=== PATIENT | male | born 1990 | race Asian ===

== ENCOUNTER 2021-02-16 19:32 | Inpatient (IN) | payer OTHER ==
[~2021-02-16] VITALS: Ht 170.2 cm; Wt 110.7 kg
[2021-02-16] MEDS: DEXT 5% /NACL 0.9% 1,000 ML IV SCH (02:25)
[2021-02-16 19:32] VITALS: BP 102/61
--- NOTE | 2021-02-16 19:32 | NUR ---
CHILO DRISCOLL TAKEN TO BED #5
--- NOTE | 2021-02-16 19:48 | NUR ---
30 YO/M BIBA FROM WORK W C/O VOMITING BLOOD THAT BEGAN TODAY, WATERY DIARRHEA X1 DAY "DARK LIKE BLOOD." PATIENT REPORTS HE WAS WORKING AND VOMITED BLOOD GOT SHAKY, SWEATY, VISION BLURRED BUT SYMPTOMS RESOLVED WHEN VOMITING STOPPED. PATIENT DENIES ABDOMINAL PAIN OR INJURY. PATIENT DENIES NAUSEA, DIZZYNESS, FEVERS. BOWEL SOUNDS PRESENT THROUGHOUT, ABDOMEN SOFT NON-TENDER. PATIENT DENIES ANY CHEST PAIN OR SOB. PATIENT DENIES ANY URINARY PROBLEMS. PATIENT CONNECTED TO MONITOR W VSS. GLUCOSE AT 136, ERMD AWARE. PATIENT LAYING IN BED LOCKED IN LOWEST POSITION, HOB SLIGHTLY ELEVATED. X1 SIDERAIL UP. NO EPISODES OF EMESIS AT THIS TIME. PMH:STOMACH ULCERS NKA
--- NOTE | 2021-02-16 19:48 | NUR ---
Note undone in EDM - 02/16/21 at 2358 by RHONDA 30 YO/M BIBA FROM WORK W C/O VOMITING BLOOD THAT BEGAN TODAY, WATERY DIARRHEA X1 DAY "DARK LIKE BLOOD." PATIENT REPORTS HE WAS WORKING AND VOMITED BLOOD GOT SHAKY, SWEATY, VISION BLURRED BUT SYMPTOMS RESOLVED WHEN VOMITING STOPPED. PATIENT DENIES ABDOMINAL PAIN OR INJURY. PATIENT DENIES NAUSEA, DIZZYNESS, FEVERS. BOWEL SOUNDS PRESENT THROUGHOUT, ABDOMEN SOFT NON-TENDER. PATIENT DENIES ANY CHEST PAIN OR SOB. PATIENT DENIES ANY URINARY PROBLEMS. PATIENT CONNECTED TO MONITOR W VSS, TACHY CARDIA AT 108. GLUCOSE AT 136, ERMD AWARE. PATIENT LAYING IN BED LOCKED IN LOWEST POSITION, HOB SLIGHTLY ELEVATED. X1 SIDERAIL UP. NO EPISODES OF EMESIS AT THIS TIME. PMH:STOMACH ULCERS NKA
[2021-02-16] MEDS ORDERED: PANTOPRAZOLE 40 MG TABEC PO ONE (19:55)
[2021-02-16] MEDS ORDERED: NACL 0.9% 1,000 ML IV ONE (19:55)
[2021-02-16] MEDS ORDERED: PANTOPRAZOLE 40 MG INJ VIAL IVP ONE (20:00)
[2021-02-16 20:21] LABS: BASOPHILS # (AUTO) 0.2 K/uL (0.00-0.22); BASOPHILS % (AUTO) 0.8 % (0.0-2.0); EOSINOPHILS # (AUTO) 0.1 K/uL (0-0.4); EOSINOPHILS % (AUTO) 0.4 % (0.0-4.0); HEMATOCRIT 33.8 % (36-52); HEMOGLOBIN 11.5 g/dL (12.0-18.0); LYMPHOCYTES # (AUTO) 1.7 K/uL (2.0-11.5); MEAN CORPUSCULAR HEMOGLOBIN 30 pg (27-31); MEAN CORPUSCULAR HGB CONC 34 g/dL (33-37); MEAN CORPUSCULAR VOLUME 89.4 fL (80-94); MONOCYTES # (AUTO) 0.6 K/uL (0.8-1.0); MONOCYTES % (AUTO) 3.3 % (1.7-9.3); NEUTROPHILS # (AUTO) 16.5 K/uL (1.8-7.7); NEUTROPHILS % (AUTO) 86.5 % (42.2-75.2); PLATELET COUNT (AUTO) 286 K/uL (140-450); RED BLOOD CELL COUNT(AUTO) 3.79 MIL/uL (4.20-6.10); RED CELL DISTRIBUTION WIDTH 12.9 % (11.6-13.7); WHITE BLOOD COUNT (AUTO) 19.1 K/uL (4.8-10.8)
[2021-02-16] MEDS ORDERED: PANTOPRAZOLE 40 MG INJ VIAL ONE (20:35)
[2021-02-16 20:40] LABS: ALBUMIN 3.1 g/dL (3.4-5.0); ANION GAP 8.8 (8-16); CARBON DIOXIDE 25.9 mmol/L (21-32); CREATININE 1.1 mg/dL (0.6-1.3); POTASSIUM 3.7 mmol/L (3.5-5.1); TOTAL BILIRUBIN 0.5 mg/dL (0.0-1.0)
--- NOTE | 2021-02-16 21:05 | NUR ---
PATIENT AMBULATED TO BATHROOMW STEADY GAIT.
[2021-02-16] MEDS ORDERED: traMADol 50 MG TAB PO ONE (21:50)
--- NOTE | 2021-02-16 21:50 | NUR ---
PATIENT W C/O 03/21 TOOCHACHE ON L SIDE, REPORTS SAW DENTIST AND NEEDS REMOVAL OF WISDOM TEETH. ERMD AWARE. ORDERS FOR PAIN MEDICATION.
--- NOTE | 2021-02-16 21:50 | NUR ---
Note vicenta in EDM - 02/17/21 at 0135 by RHONDA PATIENT W C/O 03/21 GUILHERME ON L SIDE, REPORTS SAW DENTIST AND NEEDS REMOVAL ON TONSILS. ERMD AWARE. ORDERS FOR PAIN MEDICATION.
--- NOTE | 2021-02-16 21:57 | NUR ---
PATIENT AND ERMD SIGNED CONSENT FORM FOR IV CONTRAST.
[2021-02-16] MEDS ORDERED: ZOLPIDEM 5 MG TAB PO PRN (22:40)
[2021-02-16] MEDS ORDERED: guaiFENesin DM 200/20 MG-10 ML 10 ML UDC PO PRN (22:40)
[2021-02-16] MEDS ORDERED: ACETAMINOPHEN 325 MG TAB PO PRN (22:40)
[2021-02-16] MEDS ORDERED: ONDANSETRON 4 MG/2 ML VIAL IM/IVP PRN (22:40)
[2021-02-16] MEDS ORDERED: POTASSIUM CHLORIDE 10 MEQ TABER PO PRN (22:40)
[2021-02-16] MEDS ORDERED: DOCUSATE SODIUM 100 MG GELCAP PO PRN (22:40)
[2021-02-16] MEDS ORDERED: HYDROcodone/APAP 7.5/325 MG 1 TAB PO PRN (22:40)
[2021-02-16] MEDS ORDERED: cefTRIAXone 1,000 MG VIAL ONE (22:49)
[2021-02-16] MEDS ORDERED: VANCOMYCIN 1,000 MG in DEXTROSE 5% 250 ML IV SCH (23:00)
[2021-02-16 23:13] LABS: CHOL/HDL RATIO 4.7 (1-4.5); FREE T4 (FREE THYROXINE) 0.88 ng/dL (0.76-1.46); MAGNESIUM 1.9 mg/dL (1.8-2.4); PHOSPHORUS 2.7 mg/dL (2.5-4.9); THYROID STIMULATING HORMONE 0.49 uIU/mL (0.34-3.74)
[2021-02-16 23:14] LABS: PROTHROMBIN TIME 10.4 secs (10.8-13.4)
--- NOTE | 2021-02-16 23:15 | NUR ---
PER PATIENT, FRIEND MAYTE ALLOWED TO RECEVED UPDATES ON PATIENT STATUS AND RESULTS.
[2021-02-16] MEDS ORDERED: VANCOMYCIN 1,000 MG VIAL ONE (23:38)
--- NOTE | 2021-02-16 23:55 | NUR ---
PATIENT LAYING IN BED W EYES CLOSED, BREATHING EVEN AND UNLABORED, BED LOCKED IN LOWEST POITION W X1 SIDERAIL UP. HOB SLIGHTLY ELEVATED. CONNECTED TO MONITOR W VSS. NAD NOTED, WILL CONTINUE TO MONITOR. FRIEND AT BEDSIDE.
[2021-02-16 23:58] LABS: APPEARANCE,URINE CLEAR (CLEAR); BILIRUBIN,URINE NEGATIVE (NEGATIVE); BLOOD, URINE NEGATIVE (NEGATIVE); COLOR,URINE YELLOW (YELLOW); LEUKOCYTE ESTERASE ,URINE NEGATIVE (NEGATIVE); NITRITE, URINE NEGATIVE (NEGATIVE); PH,URINE 6.5 (5.0-9.0); UGLUCOSE NEGATIVE (NEGATIVE)
[2021-02-17 00:11] LABS: BARBITURATE, URINE NEGATIVE ng/ml (NEG <=200); BENZODIAZEPINE, URINE NEGATIVE ng/mL (NEG <=200); CANNABINOID, URINE NEGATIVE ng/mL (NEG <=50); COCAINE, URINE NEGATIVE ng/mL (NEG <=300); OPIATE, URINE NEGATIVE ng/mL (NEG <=2000); PHENCYCLIDINE SCREEN,URINE NEGATIVE ng/mL (NEG <=25)
--- NOTE | 2021-02-17 01:10 | NUR ---
PATIENT AWAKE IN BED W C/O ONGOING 10/10 WISDOM TEETH PAIN. ERMD PLACED ORDER FOR 4MG MORPHINE IVP.
[2021-02-17] MEDS ORDERED: MORPHINE SULFATE 4 MG/ML SYR IVP ONE (01:15)
--- NOTE | 2021-02-17 01:35 | NUR ---
PATIENT AMBULATED TO [facility] W STEADY GAIT.
[2021-02-17] MEDS ORDERED: PIPERACILLIN/TAZOBACTAM 2.25 GM VIAL IV ONE ×2 (01:39→06:23)
[2021-02-17] MEDS: PIPERACILLIN/TAZOBACTAM 2.25 GM in DEXTROSE 5% 50 ML IV SCH ×4 (01:55→18:11)
--- NOTE | 2021-02-17 02:50 | NUR ---
MRSA SAMPLE COLLECTED FROM PATIENT NARES AND SENT TO LAB.
--- NOTE | 2021-02-17 03:00 | NUR ---
PATIENT LAYING IN BED W EYES CLOSED IN SUPINE POSITION, BREATHING EVEN AND UNLABORED, BED LOCKED IN LOWEST POITION W X1 SIDERAIL UP. HOB SLIGHTLY ELEVATED. CONNECTED TO MONITOR W VSS. NAD NOTED, WILL CONTINUE TO MONITOR. 5%DEXTROSE - 0.9NS RUNNING AT 120ML/HR W 826 ML VTBI.
--- NOTE | 2021-02-17 05:15 | NUR ---
PATIENT LAYING IN BED IN SUPINE POSITION, BREATHING EVEN AND UNLABORED, BED LOCKED IN LOWEST POITION W X1 SIDERAIL UP. HOB SLIGHTLY ELEVATED. CONNECTED TO MONITOR W VSS. PATIENT DENIES ANY ABD PAIN OR NAUSEA. NAD NOTED, WILL CONTINUE TO MONITOR. 5%DEXTROSE - 0.9NS RUNNING AT 120ML/HR.
--- NOTE | 2021-02-17 06:08 | NUR ---
SPOKE TO PHARMACY IN REGARDS TO PATIENT MEDICATION OF ZOSYN 2.25 GM ADMINISTERED AT 0152. PER PHARMACY TO BEGIN NEXT DOSE OF ZOSYN 2.25GM AT 0700, THEN THE FOLLOWING DOSE AT 1200 TO KEEP ON TRACK W MEDICATION TIMES. PER MATEUSZ KEEP 5%DEXTROSE-0.9 N.S 1,000ML CONTINUOUS.
[2021-02-17 06:18] LABS: BASOPHILS # (AUTO) 0.1 K/uL (0.00-0.22); BASOPHILS % (AUTO) 0.6 % (0.0-2.0); EOSINOPHILS # (AUTO) 0.1 K/uL (0-0.4); EOSINOPHILS % (AUTO) 1.3 % (0.0-4.0); HEMATOCRIT 30.1 % (36-52); HEMOGLOBIN 10.3 g/dL (12.0-18.0); LYMPHOCYTES # (AUTO) 3.1 K/uL (2.0-11.5); LYMPHOCYTES % (AUTO) 31.7 % (20.5-51.1); MEAN CORPUSCULAR HEMOGLOBIN 31 pg (27-31); MEAN CORPUSCULAR HGB CONC 34 g/dL (33-37); MEAN CORPUSCULAR VOLUME 90.6 fL (80-94); MONOCYTES # (AUTO) 0.5 K/uL (0.8-1.0); MONOCYTES % (AUTO) 5.5 % (1.7-9.3); NEUTROPHILS # (AUTO) 5.9 K/uL (1.8-7.7); NEUTROPHILS % (AUTO) 60.9 % (42.2-75.2); PLATELET COUNT (AUTO) 272 K/uL (140-450); RED BLOOD CELL COUNT(AUTO) 3.32 MIL/uL (4.20-6.10); RED CELL DISTRIBUTION WIDTH 12.8 % (11.6-13.7); WHITE BLOOD COUNT (AUTO) 9.7 K/uL (4.8-10.8)
[2021-02-17 07:02] LABS: CARBON DIOXIDE 29.6 mmol/L (21-32); POTASSIUM 3.6 mmol/L (3.5-5.1)
--- NOTE | 2021-02-17 07:16 | NUR ---
Pt report given to BRYANT BARONE. Transfer of care at this time.
--- NOTE | 2021-02-17 07:16 | NUR ---
REPORT RECEIVIED FROM REBEKA HURTADO FOR CONTINUITY OF CARE. A&OX4. SR ON MONITOR. ON ROOM AIR. IV SITE LT AV 18 G INFUISNG D5NS. SKIN WARM AND DRY. CALL LIGHT WITHIN REACH. SAFETY PRECAUTIONS IN PLACE. [facility] LOCKED IN LOWEST POSITION. WILL CONTINUE TO MONITOR.
[2021-02-17] MEDS: DEXT 5% /NACL 0.9% 1,000 ML IV SCH ×2 (07:50→15:20)
[2021-02-17] MEDS ORDERED: PANTOPRAZOLE 40 MG TABEC PO SCH (09:00)
--- NOTE | 2021-02-17 09:22 | NUR ---
DR HINDS AT BEDSIDE EXAMINING PT
--- NOTE | 2021-02-17 11:34 | NUR ---
RECEIVED REPORT FROM ER NURSE ABISAI AT 11:34 PT CAME IN THE ER FOR VOMITING, DIARRHEA AND PRESENCE OF BLOOD IN STOOL AND IN VOMITING. CT, AND X-RAY WAS DONE IN THE ER. PT IS FULL CODE, REGULAR DIET, HAS HX OF GI ULCERS. IVF D5NS0.9% 120 ML/HR. IV ON L FOREARM 18 GAUGE. PT WILL BE NPO EXCEPT FOR MEDICATION.
--- NOTE | 2021-02-17 11:50 | NUR ---
Patient will be admitted to care of DR HINDS. Admited to TELEMETRY. Will go to room 111A. Belongings list completed. Report to LUIS ALBERTO HURTADO.
--- NOTE | 2021-02-17 12:15 | NUR ---
PT CAME FROM ER TO THE UNIT VIA ANTONY. DIRECTED PT TO THE ROOM, CHANGED THE GOWN, BLANKET PROVIDED, MRSA SAMPLE TAKEN, ASSESSED VITALS, NPO SIGNED IN PLACED. RESUME IV FLUIDS PER MD ORDER, SKIN ASSESSED. ALL SUPPLIES PROVIDED. PT DENIES PAIN OR DISCOMFORT. DENIES N/V/D. ALL SAFETY MEASURES ARE IN PLACED. CALLED PHARMACY TO SEND ZOSYN, PHARMACIST SAID THEY WILL SEND IT SHORTLY. WILL ADMINISTERED WHEN RECEIVED. PT IS SLEEPING IN THE BED AT THE MOMENT. WILL CONTINUE TO ASSESS PT.
--- NOTE | 2021-02-17 13:47 | NUR ---
ADMINISTERED ZOSYN PER MD ORDER, PT DENIES PAIN AT THE MOMENT.
[2021-02-17] MEDS ORDERED: fentaNYL citrate 0.05 MG/ML VIAL ONE (14:55)
[2021-02-17] MEDS ORDERED: MIDAZOLAM 5 MG/5 ML VIAL ONE (14:55)
[2021-02-17] MEDS ORDERED: diphenhydrAMINE 50 MG/ML VIAL ONE (14:55)
--- NOTE | 2021-02-17 15:40 | NUR ---
PT WENT FOR EGD IN STABLE CONDITION, VITALS WERE WITH IN NORMAL RANGE.
[2021-02-17] MEDS ORDERED: MIDAZOLAM 2 MG/2 ML VIAL IVP ONE (16:30)
[2021-02-17] MEDS ORDERED: fentaNYL citrate 0.05 MG/ML VIAL IVP ONE (16:30)
--- NOTE | 2021-02-17 16:40 | NUR ---
PT CAME BACK FROM EGD, NURSE GAVE REPORT, PT HAS ONE HYPOTENSIVE EPISODE DURING THE PROCEDURE, PT HAS VITALS SIGNS STABLE AT THE MOMENT, PT IS NOT NPO NOW. GAVE PT APPLE SAUCE AND ORANGE JUICE.
--- NOTE | 2021-02-17 17:03 | NUR ---
PATIENT HAS BEEN SCREENED AND CATEGORIZED MODERATE NUTRITION RISK. PATIENT WILL BE SEEN WITHIN 3-5 DAYS OF ADMISSION. 02/18/21 02/20/[address]
[2021-02-17 17:15] VITALS: BP 126/66
--- NOTE | 2021-02-17 17:40 | NUR ---
PT TOLERATED JUICE AND APPLE SAUCE WELL. NO NAUSEA VOMITING REPORTED. DENIES PAIN
--- NOTE | 2021-02-17 18:00 | NUR ---
PT'S FRIEND IS WITH THE PT AT BED SIDE, HE ASKED ABOUT REASONS OF PT'S GI BLEED. ASKED PT FOR PERMISSION TO SHARE INFORMATION. PT ALLOWED IT. DISEASE PROCESS WAS EXPLAINED TO PT'S FRIEND AND SHARED EGD RESULT PER PT PERMISSION. PT DENIES PAIN AT THE MOMENT.
--- NOTE | 2021-02-17 18:15 | NUR ---
ADMINISTERED SCHEDULE MEDICATION PER MD ORDER.
--- NOTE | 2021-02-17 19:00 | NUR ---
PT IS SLEEPING IN THE BED, NO SOB NOTED.
--- NOTE | 2021-02-17 19:30 | NUR ---
ENDORSED NIGHT NURSE FOR CONTINUITY OF CARE PT IS STABLE.
[2021-02-17] MEDS: PANTOPRAZOLE 40 MG INJ VIAL IVP SCH (22:25)
[2021-02-18] MEDS: PIPERACILLIN/TAZOBACTAM 2.25 GM in DEXTROSE 5% 50 ML IV SCH ×3 (01:05→12:00)
[2021-02-18 01:37] VITALS: BP 129/68
[2021-02-18 04:00] VITALS: BP 127/60
[2021-02-18] MEDS: DEXT 5% /NACL 0.9% 1,000 ML IV SCH (04:00)
[2021-02-18 06:07] LABS: T4 (THYROXINE) 5.9 ug/dL (4.5-12.0)
[2021-02-18 07:32] LABS: BASOPHILS # (AUTO) 0.1 K/uL (0.00-0.22); BASOPHILS % (AUTO) 0.6 % (0.0-2.0); EOSINOPHILS # (AUTO) 0.1 K/uL (0-0.4); EOSINOPHILS % (AUTO) 1.7 % (0.0-4.0); HEMATOCRIT 27.1 % (36-52); HEMOGLOBIN 9.3 g/dL (12.0-18.0); LYMPHOCYTES # (AUTO) 2.7 K/uL (2.0-11.5); LYMPHOCYTES % (AUTO) 32.7 % (20.5-51.1); MEAN CORPUSCULAR HEMOGLOBIN 31 pg (27-31); MEAN CORPUSCULAR HGB CONC 34 g/dL (33-37); MEAN CORPUSCULAR VOLUME 89.5 fL (80-94); MONOCYTES # (AUTO) 0.3 K/uL (0.8-1.0); NEUTROPHILS # (AUTO) 5.1 K/uL (1.8-7.7); PLATELET COUNT (AUTO) 241 K/uL (140-450); RED BLOOD CELL COUNT(AUTO) 3.03 MIL/uL (4.20-6.10); RED CELL DISTRIBUTION WIDTH 12.6 % (11.6-13.7); WHITE BLOOD COUNT (AUTO) 8.4 K/uL (4.8-10.8)
--- NOTE | 2021-02-18 07:42 | NUR ---
RECEIVED REPORT FROM NIGHT NURSE PT IS ALERT AWAKE X 4 VERBALLY RESPONSIVE, HAD EGD YESTERDAY. PT DO NOT HAVE VOMITING AND DIARRHEA YESTERDAY ON IV ANTIBIOTICS. IV ACCESS ON LEFT AC 18 GAUGE. VITALS ARE STABLE. PLAN OF CARE DISCUSSED. WILL CONTINUE TO FOLLOW.
[2021-02-18 08:00] VITALS: BP 115/74
[2021-02-18 08:07] LABS: ANION GAP 10.9 (8-16); CARBON DIOXIDE 28.4 mmol/L (21-32); POTASSIUM 3.3 mmol/L (3.5-5.1)
[2021-02-18] MEDS: PANTOPRAZOLE 40 MG INJ VIAL IVP SCH (08:15)
--- NOTE | 2021-02-18 08:17 | NUR ---
PT RECEIVED SCHEDULE MEDICATIONS PER MD ORDER, DENIES PAIN OR DISCOMFORT WILL CONTINUE TO OBSERVE PT.
[2021-02-18 09:07] LABS: FOLIC ACID 7.2 ng/mL (>3.0)
[2021-02-18] MEDS ORDERED: TRAM50TA1 PO (10:11)
[2021-02-18] MEDS ORDERED: BISM262C52 PO (10:11)
[2021-02-18] MEDS ORDERED: OMEP40EC24 PO (10:11)
[2021-02-18 12:00] VITALS: BP 119/76
--- NOTE | 2021-02-18 12:14 | NUR ---
DOCTOR ANTONIO PRESENT AT BEDSIDE SUGGESTED NOT TO ADMINISTERED IT, HELD PER MD ORDER.
[2021-02-18 13:07] VITALS: BP 123/85
--- NOTE | 2021-02-18 14:00 | NUR ---
PT DISCHARGED HOME IN STABLE CONDITION, DENIES PAIN AND SOB AT THE TIME OF DISCHARGE. VITALS WERE STABLE, ALL PAPERWORK GIVEN AT THE TIME OF DISCHARGE, DC IV AND ALL BELONGINGS GIVEN, ENCOURAGED PT TO EAT HEALTHY DIET TO PREVENT WORSENING OF GI ULCERS. CONTACT INFORMATION OF PHARMACY PROVIDED FOR PRESCRIPTION MEDICATION. SIDE EFFECTS OF MEDICATIONS WERE EXPLAINED. EDUCATED PT ABOUT S/S OF WORSENING ULCER AND GUIDED TO COME BACK TO ER IF CONDITION WORSEN. ALL BELONGING GIVEN AND WALKED PT TO THE LOBBY.
== END 2021-02-18 14:00 | disposition home or self-care (01) | DRG 377 ==
LOC: MED 19:32 → EDSEX 19:32 → MMU 22:22 → MTU 02-17 11:35
PROVIDERS: ADMIT Family Medicine; ATTEND Family Medicine
PROC: 0DB78ZX Excision of Stomach, Pylorus, Via Natural or Artificial Opening Endoscopic, Diagnostic (ICD-10-PCS; 2021-02-17)
PROC: 0W3P8ZZ Control Bleeding in Gastrointestinal Tract, Via Natural or Artificial Opening Endoscopic (ICD-10-PCS; 2021-02-17)
PROC: 0DB68ZX Excision of Stomach, Via Natural or Artificial Opening Endoscopic, Diagnostic (ICD-10-PCS; principal; 2021-02-17 15:00)
DX: K25.4 Chronic or unspecified gastric ulcer with hemorrhage (principal); N17.0 Acute kidney failure with tubular necrosis; E44.1 Mild protein-calorie malnutrition; D64.9 Anemia, unspecified; E87.8 Other disorders of electrolyte and fluid balance, not elsewhere classified; E78.2 Mixed hyperlipidemia; F17.210 Nicotine dependence, cigarettes, uncomplicated; Z20.822 Contact with and (suspected) exposure to COVID-19; K29.80 Duodenitis without bleeding; Z80.1 Family history of malignant neoplasm of trachea, bronchus and lung; Z68.38 Body mass index [BMI] 38.0-38.9, adult
CPT/HCPCS: 36415; 71045; 80048; 80053; 80305; 81003; 82150; 82272; 82607; 82728; 82746; 83036; 83540; 83690; 83735; 83880; 84100; 84436; 84439; 84443; 84479; 84484; 85025; 85045; 85610; 85730; 86677; 87040; 87081; 88305; 88312; 88313; 88342; 96365; 96367; 96375; 99285; C9113; J0696; J1200; J2250; J2270; J2543; J3010; J3370; J7030; J7060; Q0092; Q9967